=== PATIENT | female | born 1935 | race African-American/Black ===

== ENCOUNTER 2018-11-06 15:17 | Inpatient (IN) | payer OTHER ==
[~2018-11-06] VITALS: Ht 162.6 cm; Wt 62.6 kg
[2018-11-06] MEDS ORDERED: DIPHENHYDRAMINE 25MG CAPSULE PO ONE (19:45)
[2018-11-06] MEDS ORDERED: SODIUM CHLORIDE 0.9% 1000ML BAG (SEPSIS BOLUS) IV ONE (19:45)
[2018-11-06] MEDS ORDERED: VANCOMYCIN 1 G PREMIX 200 ML IV ONE (19:45)
[2018-11-06] MEDS ORDERED: PIPERACILLIN/TAZ 3.375G PREMIX 50 ML IV ONE (19:45)
[2018-11-06 20:18] LABS: BASOPHILS % 0.6 % (0.0-2.0); EOSINOPHILS % 4.1 % (0.0-5.0); HEMOGLOBIN. 11.6 g/dL (12.0-16.0); LYMPHOCYTES % 21.7 % (20.0-50.0); MEAN CORPUSCULAR HEMOGLOBIN 27.6 pg (28.0-32.0); MEAN CORPUSCULAR VOLUME 83.6 fL (81.0-99.0); MONOCYTES % 7.5 % (2.0-8.0); NEUTROPHILS % 66.1 % (40.0-76.0); PLATELET 316 x1000/uL (130-400); RED BLOOD CELL COUNT 4.19 mill/uL (4.2-5.4); RED CELL DISTRIBUTION WIDTH 14.2 % (11.6-14.6)
[2018-11-06 20:24] LABS: CHLORIDE 107 mEq/L (98-107)
[2018-11-06 20:27] LABS: PARTIAL THROMBOPLASTIN TIME 29.4 sec (23.4-31.0); PROTHROMBIN TIME 10.3 sec (9.1-11.1)
[2018-11-06] MEDS ORDERED: POTASSIUM CHLORIDE 20MEQ TABLET SR PO ONE (21:00)
[2018-11-07 00:50] VITALS: BP 151/62
[2018-11-07 04:00] VITALS: BP 152/74
[2018-11-07 04:04] LABS: CLARITY URINE CLEAR (CLEAR); COLOR URINE YELLOW (YELLOW); KETONES URINE NEGATIVE (NEGATIVE); LEUKOCYTE ESTERASE URINE NEGATIVE (NEGATIVE); NITRITE URINE NEGATIVE (NEGATIVE); OCCULT BLOOD URINE TRACE (NEGATIVE); PH URINE 6.5 (4.5-8.0); PROTEIN URINE NEGATIVE (NEGATIVE); SPECIFIC GRAVITY URINE 1.007 (1.005-1.030); UROBILINOGEN URINE 0.2 E.U./dL (0.2-1.0)
[2018-11-07] MEDS ORDERED: TRAM50TA94 PO (05:58)
[2018-11-07] MEDS ORDERED: AMLO5TAB4 PO (05:58)
[2018-11-07] MEDS ORDERED: FERR325T6 PO (05:58)
[2018-11-07] MEDS ORDERED: HYDR25TA PO (05:58)
[2018-11-07] MEDS ORDERED: RANI300T7 PO (05:58)
[2018-11-07] MEDS ORDERED: CYAN-33 PO (05:58)
[2018-11-07] MEDS ORDERED: ALBU05 IH (05:58)
[2018-11-07] MEDS ORDERED: MULT-379 PO (05:58)
[2018-11-07] MEDS ORDERED: POT25TAB5 PO (05:58)
[2018-11-07 08:00] VITALS: BP 136/61
[2018-11-07] MEDS ORDERED: ACETAMINOPHEN 650MG/20.3ML UDC GT PRN (08:30)
[2018-11-07] MEDS ORDERED: AMLODIPINE 5MG TABLET PO SCH (09:00)
[2018-11-07] MEDS ORDERED: ENOXAPARIN 40MG/0.4ML SYR SUBCUT SCH (09:00)
[2018-11-07] MEDS ORDERED: FAMOTIDINE 20MG TABLET PO SCH ×2 (09:00)
[2018-11-07] MEDS ORDERED: PANTOPRAZOLE 40MG DR TABLET PO SCH (09:30)
[2018-11-07 12:00] VITALS: BP 122/45
[2018-11-07] MEDS: IPRATROPIUM/ALBUTEROL 0.5-3(2.5)MG/3ML NEB HHN SCH ×2 (13:00→16:56)
[2018-11-07] MEDS: PIPERACILLIN/TAZ 2.25G PREMIX 50 ML IV SCH ×2 (13:27→16:20)
[2018-11-07] MEDS ORDERED: SODIUM CHLORIDE 0.9% INJ 3ML FLUSH IVF SCH (14:00)
[2018-11-07 16:00] VITALS: BP 131/42
[2018-11-07 18:21] VITALS: BP 134/82
== END 2018-11-07 21:05 | DRG 603 ==
LOC: ER 15:30 → EDBEDREQTM 20:56 → EDBEDREQ 20:56 → ENRESERV 23:36 → 6EST 11-07 01:01
PROVIDERS: ADMIT Ophthalmology; ATTEND Ophthalmology
DX: L03.116 Cellulitis of left lower limb (principal); E87.6 Hypokalemia; F03.90 Unspecified dementia, unspecified severity, without behavioral disturbance, psychotic disturbance, mood disturbance, and anxiety; G89.29 Other chronic pain; I10 Essential (primary) hypertension; J44.9 Chronic obstructive pulmonary disease, unspecified; M54.9 Dorsalgia, unspecified; K21.9 Gastro-esophageal reflux disease without esophagitis; Z87.11 Personal history of peptic ulcer disease; Z87.891 Personal history of nicotine dependence; Z91.013 Allergy to seafood
CPT/HCPCS: 36415; 71045; 83605; 83880; 84145; 84484; 93005; 93923; 93970; 96365; 96366; 96368; 99285; J2543; J3370; J7030; J7620; Q0163